=== PATIENT | female | born 1950 | race Caucasian/White ===

== ENCOUNTER → 2020-06-28 | Outpatient (CLI) | payer MEDICARE | LOC: CARD 12:03 | PROVIDERS: ATTEND Nurse Practitioner Family | DX: R00.2 Palpitations (principal) | CPT/HCPCS: 93225; 93226 ==

== ENCOUNTER → 2020-08-19 | Outpatient (CLI) | payer MEDICAID, MEDICARE ==
[~2020-08-19] MED LIST: CATHETER FLUSH 10 ML SYR IV PRN
[2020-08-19 12:52] VITALS: BP 197/71
[2020-08-19 12:56] VITALS: BP 151/75
--- NOTE | 2020-08-19 16:50 | Cardiology Stress Test Report ---
Stress Test Report Date of Procedure/Referring: PCP Emeka Joiner Jr, MD Admitting Physician No,Local Physician Indications: Premature atrial complexes. Baseline Blood Pressure: Blood Pressure Systolic: 151 Blood Pressure Diastolic: 75 Baseline Vitals Vital Signs Date Time Temp Pulse Resp B/P (MAP) Pulse Ox O2 Delivery O2 Flow Rate FiO2 08/19/20 12:52 87 19 197/71 (113) 97 Room Air Baseline EKG: Baseline EKG: Sinus rhythm with nonspecific T wave changes. Summary After explaining the procedure to the patient, she signed a consent and then brought to the stress nuclear laboratory. STRESS TEST PROCEDURE: This was a walking Lexiscan stress test. The patient was exercised on the treadmill at 1.7 mph. After approximately 1 minute of walking, the patient was administered 0.4 mg of intravenous regadenoson. The resting heart rate was 75 bpm and the peak heart rate was 151 bpm. The resting blood pressure was 139/70 mmHg and the peak blood pressure was 238/76 mmHg. This represents normal heart rate and a hypertensive blood pressure response to regadenoson. There was no chest discomfort during the test. There were occasional, isolated premature ventricular complexes during the test. There were no significant stress-induced electrocardiogram changes. NUCLEAR PROCEDURE: The patient was administered 10.7 mCi of intravenous technetium 99m Myoview at rest for the rest images. The patient was subsequ ently administered 32.1 mCi of intravenous technetium 90 9M Myoview at peak stress for the stress images. Following an appropriate wait after each injection, imaging was obtained. The images were subsequently processed and reformatted in the usual views. Gated imaging was obtained. There was a mild degree of breast attenuation artifact noted. NUCLEAR RESULTS: There was normal myocardial perfusion in all segments without evidence of infarction or ischemia. There was normal left ventricular chamber size with an end-diastolic volume of 89 mL and an end-systolic volume of 29 mL. There was no evidence of transient ischemic dilatation. The TID ratio was 1.17. There was normal wall motion in all segments with a calculated ejection fraction of 68%. 1. Normal heart rate and a hypertensive blood pressure response to regadenoson. 2. There was no chest discomfort during the test. 3. There were isolated premature ventricular complexes during the test. 4. There were no electrocardiogram changes during the test. 5. There was normal myocardial perfusion in all segments without evidence of infarction or ischemia. 6. There was normal wall motion in all segments with a calculated ejection fraction of 68%. EMEKA JOINER JR, MD Aug 19, 2020 16:50
== END ==
LOC: CARD 11:00
PROVIDERS: ATTEND Internal Medicine Cardiovascular Disease
DX: I08.0 Rheumatic disorders of both mitral and aortic valves (principal); I51.7 Cardiomegaly; I49.1 Atrial premature depolarization
CPT/HCPCS: 78452; 93017; 93306; A9502

== ENCOUNTER → 2021-06-15 | Outpatient (CLI) | payer MEDICARE, MEDICAID ==
--- NOTE | 2021-06-15 15:47 | Diagnostic Imaging Report ---
INDICATION: Chest wall pain. EXAMINATION: PA and lateral chest. FINDINGS: The heart size and pulmonary vascularity are normal. The lungs are clear. There are no effusions or pneumothoraces. IMPRESSION: Negative chest. Dictated by: Dictated on workstation # [id number]
== END ==
LOC: RAD FS 14:23
PROVIDERS: ATTEND Nurse Practitioner Family
DX: R07.89 Other chest pain (principal); R05.3 Chronic cough
CPT/HCPCS: 71046